=== PATIENT | female | born 1945 | race Caucasian/White ===

== ENCOUNTER 2021-02-13 09:23 | Emergency (ER) | payer MEDICARE ==
--- NOTE | 2021-02-13 10:00 | ERPHSYRPT ---
- History of Present Illness Time Seen by Provider: 02/13/21 09:35 Patient Subjective Stated Complaint: rib area pain, abd gurgling, frequent bowel movements Triage Nursing Assessment: pt to ED c/o L pain just under breast that comes and goes randomly. no aggrevating factors. alleviates with stretching and pressure. deneis CP. denies pain currently but sates this pain is recurring more often paula n before, has been dealing with this pain 2-3 years. "It started occuring few times a year and now it is more frequently, every other day." called PCP office today and was reffered to ED. Physician History: Patient is a 75-year-old female presents to our ED as a referral from her primary care doctor. Patient has been experiencing intermittent left lower chest pain for approximately 2 to 3 years. Patient states her symptoms are becoming more frequent. The pain is not associated with shortness of breath. Patient called her primary care doctor with these complaints. She was advised to come to our ED for an evaluation. Pain described as an ache. Pain is localized. No radiation. No specific worsening or improving factors. Symptoms are mild to moderate in intensity. Patient declined pain medication. Patient denies associated nausea or vomiting. No syncope. No diarrhea. No rash no fever. No Covid exposure. Patient states she is otherwise healthy. She states she exercises regularly. She voices no other complaints or concerns at this time. Allergies/Adverse Reactions: levofloxacin [From Levaquin] Allergy (Severe, Verified 02/13/21 09:38) Penicillins Allergy (Severe, Verified 02/13/21 09:38) nitrofurazone Allergy (Verified 02/13/21 09:38) Home Medications: Aspirin [Aspir-Low] 81 mg DAILY 09/12/16 [History] Calcium Carbonate/Vitamin D3 [Caltrate 600 + D Soft Chew Tab] 1 each PO DAILY 09/12/16 [History] Levothyroxine Sodium 88 Mcg [Synthroid 88 Mcg] 88 mcg PO DAILY 09/12/16 [History] Meloxicam 15 mg [Meloxicam 15 MG] 15 mg PO HS 09/12/16 [History] Multivitamin,Ther and Minerals [Vitamin and Minerals] 1 tab DAILY 09/12/16 [History] Omeprazole [Prilosec] 40 mg PO DAILY 09/12/16 [History] Pitavastatin Calcium [Livalo] 10 mg PO DAILY 09/12/16 [History] Zolpidem Tartrate [Ambien] 10 mg PO HS 09/12/16 [History] Hx Tetanus, Diphtheria Vaccination/Date Given: Yes Hx Influenza Vaccination/Date Given: Yes Hx Pneumococcal Vaccination/Date Given: Yes Immunizations Up to Date: Yes Travel Risk - International Travel Have you traveled outside of the country in past 3 weeks: No - Coronavirus Screening Are you exhibiting any of the following symptoms?: No Close contact with a COVID-19 positive Pt in past 14-21 Days: No - Vaccine Status Have you recieved a Covid-19 vaccination: Yes School Treasurer: Sverve - Vaccination Dates Date of 2cond Vaccination (if applicable): dec - Review of Systems Constitutional: No Symptoms, No Fever, No Chills Eyes: No Symptoms Ears, Nose, & Throat: No Symptoms Respiratory: No Symptoms, No Cough, No Dyspnea Cardiac: No Symptoms, No Chest Pain, No Edema, No Syncope Abdominal/Gastrointestinal: No Symptoms, No Abdominal Pain, No Nausea, No Vomiti ng, No Diarrhea Genitourinary Symptoms: No Symptoms, No Dysuria Musculoskeletal: No Symptoms, No Back Pain, No Neck Pain Skin: No Symptoms, No Rash Neurological: No Symptoms, No Dizziness, No Focal Weakness, No Sensory Changes Psychological: No Symptoms Endocrine: No Symptoms Hematologic/Lymphatic: No Symptoms Immunological/Allergic: No Symptoms All Other Systems: Reviewed and Negative - Past Medical History Pertinent Past Medical History: Yes Neurological History: No Pertinent History ENT History: Cataracts Cardiac History: No Pertinent History Respiratory History: No Pertinent History Endocrine Medical History: Hypothyroidism Musculoskeletal History: Osteoarthritis GI Medical History: Polyps, Gallbladder Disease History: Other Psycho-Social History: No Pertinent History Female Reproductive Disorders: No Pertinent History Other Medical History: R TKA - Past Surgical History Past Surgical History: Yes Neuro Surgical History: No Pertinent History Cardiac: Cardiac Catheterization Respiratory: No Pertinent History Gastrointestinal: Cholecystectomy Genitourinary: No Pertinent History Musculoskeletal: No Pertinent History, Orthopedic Surgery Female Surgical History: No Pertinent History Other Surgical History: bladder tie up. left great toe. lasix eye surgery. R knee - Social History Smoking Status: Never smoker Exposure to second hand smoke: No Drug Use: none Patient Lives Alone: No - Female History Hx Now: No - Nursing Vital Signs Nursing Vital Signs: Initial Vital Signs Temperature 98.0 F 02/13/21 09:31 Pulse Rate 84 02/13/21 09:31 Respiratory Rate 18 02/13/21 09:31 Blood Pressure 156/87 02/13/21 09:31 O2 Sat by Pulse Oximetry 97 02/13/21 09:31 Pain Scale Pain Intensity 0 - Physical Exam General Appearance: no apparent distress, alert Eye Exam: PERRL/EOMI, eyes nml inspection Ears, Nose, Throat Exam: normal ENT inspection, TMs normal, pharynx normal, moist mucous membranes Neck Exam: normal inspection, non-tender, supple, full range of motion Respiratory Exam: normal breath sounds, lungs clear, No respiratory distress Cardiovascular Exam: regular rate/rhythm, normal heart sounds, normal peripheral pulses Gastrointestinal/Abdomen Exam: soft, normal bowel sounds, No tenderness, No mass Back Exam: normal inspection, normal range of motion, No CVA tenderness, No vertebral tenderness Extremity Exam: normal inspection, normal range of motion, pelvis stable Neurologic Exam: alert, oriented x 3, cooperative, normal mood/affect, nml cerebellar function, sensation nml, No motor deficits Skin Exam: normal color, warm, dry, No rash Lymphatic Exam: No adenopathy SpO2 Interpretation: normal SpO2: 97 O2 Delivery: Room Air - Course Nursing assessment & vital signs reviewed: Yes EKG Interpreted by Me: RATE (84), Sinus Rhythm, NORMAL AXIS, NORMAL INTERVALS, Left Bundle Branch Block - CT Exams Chest CT Interpretation: Tele-radiologist Report (For PE. No acute cardiopulmonary abnormalities. Incidental granulomatous disease.) Ordered Tests: Active Orders 24 hr Category Date Time Status Chief Of Production STAT Care 02/13/21 09:58 Active EKG-ER Only STAT Care 02/13/21 09:57 Active IV Insertion STAT Care 02/13/21 09:57 Active Pulse Oximetry (ED) STAT Care 02/13/21 09:57 Active Heart-Healthy Diet Diet 02/13/21 Dinner Active ABDOMEN AND PELVIS W CONTRAST [CT] Stat Exams 02/13/21 10:57 Completed CHEST WITH CONTRAST [CT] Stat Exams 02/13/21 10:57 Completed CBC W DIFF Stat Lab 02/13/21 10:10 Completed CMP Stat Lab 02/13/21 10:10 Completed D-DIMER QUANTITATIVE Stat Lab 02/13/21 10:10 Completed LIPASE Stat Lab 02/13/21 10:10 Completed MAGNESIUM Stat Lab 02/13/21 10:10 Completed NT PRO BNP Stat Lab 02/13/21 10:10 Completed TROPONIN Q3H Lab 02/13/21 10:10 Completed TROPONIN Q3H Lab 02/13/21 13:10 Completed TROPONIN Q3H Lab 02/13/21 16:00 Ordered TROPONIN Q3H Lab 02/13/21 19:00 Ordered TROPONIN Q3H Lab 02/13/21 22:00 Ordered UA W/RFX UR CULTURE Stat Lab 02/13/21 11:42 Completed Medication Summary Discontinued Medications Generic Name Dose Route Start Last Admin Trade Name Freq PRN Reason Stop Dose Admin Aspirin 324 mg 02/13/21 13:41 02/13/21 13:48 Baby Aspirin 81 Mg Chew PO 02/13/21 13:42 324 mg STAT ONE Administration Aspirin Confirm 02/13/21 13:46 Baby Aspirin 81 Mg Chew Administered 02/13/21 13:47 Dose 324 mg .ROUTE .STK-MED ONE Nitroglycerin 1 gm 02/13/21 13:41 02/13/21 13:48 Nitro-Bid 2% Ud Packets TOP 02/13/21 13:42 1 gm STAT ONE Administration Nitroglycerin Confirm 02/13/21 13:46 Nitro-Bid 2% Ud Packets Administered 02/13/21 13:47 Dose 1 gm .ROUTE .STK-MED ONE Lab/Rad Data: Laboratory Result Diagrams 02/13/21 10:10 02/13/21 10:10 Laboratory Results 02/13/21 02/13/21 02/13/21 Range/Units 13:10 11:42 10:10 WBC (4.0-10.5) K/mm3 RBC (4.1-5.4) M/mm3 Hgb (12.0-16.0) gm/dl Hct (35-47) % MCV (78-100) fl MCH (26-32) pg MCHC (32-36) g/dl RDW (11.5-14.0) % Plt Count (150-450) K/mm3 MPV (7.5-11.0) fl Gran % (36.0-66.0) % Eos # (Auto) (0-0.5) Absolute Lymphs (auto) (1.0-4.6) Absolute Monos (auto) (0.0-1.3) Lymphocytes % (24.0-44.0) % Monocytes % (0.0-12.0) % Eosinophils % (0.00-5.0) % Basophils % (0.0-0.4) % Absolute Granulocytes (1.4-6.9) Basophils # (0-0.4) D-Dimer (215-500) ng/mL Sodium (137-145) mmol/L Potassium (3.5-5.1) mmol/L Chloride (98-107) mmol/L Carbon Dioxide (22-30) mmol/L Anion Gap (5-15) MEQ/L BUN (7-17) mg/dL Creatinine (0.52-1.04) mg/dL Estimated GFR ML/MIN Glucose (74-106) mg/dL Calcium (8.4-10.2) mg/dL Magnesium (1.6-2.3) mg/dL Total Bilirubin (0.2-1.3) mg/dL AST (14-36) U/L ALT (0-35) U/L Alkaline Phosphatase (38-126) U/L Troponin I < 0.012 < 0.012 (0.000-0.034) ng/mL NT-Pro-B Natriuret Pep (0-1800) pg/mL Serum Total Protein (6.3-8.2) g/dL Albumin (3.5-5.0) g/dL Lipase (23-300) U/L Urine Color STRAW (YELLOW) Urine Appearance CLEAR (CLEAR) Urine pH 7.0 (5-6) Ur Specific [place] 1.005 (1.005-1.025) Urine Protein NEGATIVE (Negative) Urine Ketones NEGATIVE (NEGATIVE) Urine Blood NEGATIVE (0-5) Baldemar/ul Urine Nitrite NEGATIVE (NEGATIVE) Urine Bilirubin NEGATIVE (NEGATIVE) Urine Urobilinogen NEGATIVE (0-1) mg/dL Ur Leukocyte Esterase NEGATIVE (NEGATIVE) Urine WBC (Auto) NONE (0-5) /HPF Urine RBC (Auto) NONE (0-2) /HPF U Epithel Cells (Auto) NONE (FEW) /HPF Urine Bacteria (Auto) NONE (NEGATIVE) /HPF Urine Culture Reflexed NO (NO) Urine Glucose NEGATIVE (NEGATIVE) mg/dL 04/13/21 04/13/21 04/13/21 Range/Units 10:10 10:10 10:10 WBC 6.7 (4.0-10.5) K/mm3 RBC 4.11 (4.1-5.4) M/mm3 Hgb 11.7 L (12.0-16.0) gm/dl Hct 37.3 (35-47) % MCV 90.8 (78-100) fl MCH 28.5 (26-32) pg MCHC 31.4 L (32-36) g/dl RDW 13.7 (11.5-14.0) % Plt Count 267 (150-450) K/mm3 MPV 9.1 (7.5-11.0) fl Gran % 60.9 (36.0-66.0) % Eos # (Auto) 0.29 (0-0.5) Absolute Lymphs (auto) 1.64 (1.0-4.6) Absolute Monos (auto) 0.65 (0.0-1.3) Lymphocytes % 24.5 (24.0-44.0) % Monocytes % 9.7 (0.0-12.0) % Eosinophils % 4.3 (0.00-5.0) % Basophils % 0.6 (0.0-0.4) % Absolute Granulocytes 4.07 (1.4-6.9) Basophils # 0.04 (0-0.4) D-Dimer 865 H* (215-500) ng/mL Sodium 139 (137-145) mmol/L Potassium 4.3 (3.5-5.1) mmol/L Chloride 104 (98-107) mmol/L Carbon Dioxide 28 (22-30) mmol/L Anion Gap 11.3 (5-15) MEQ/L BUN 16 (7-17) mg/dL Creatinine 0.77 (0.52-1.04) mg/dL Estimated GFR > 60.0 ML/MIN Glucose 98 (74-106) mg/dL Calcium 9.5 (8.4-10.2) mg/dL Magnesium 2.0 (1.6-2.3) mg/dL Total Bilirubin 0.30 (0.2-1.3) mg/dL AST 27 (14-36) U/L ALT 24 (0-35) U/L Alkaline Phosphatase 68 (38-126) U/L Troponin I (0.000-0.034) ng/mL NT-Pro-B Natriuret Pep 113 (0-1800) pg/mL Serum Total Protein 7.0 (6.3-8.2) g/dL Albumin 4.0 (3.5-5.0) g/dL Lipase 142 (23-300) U/L Urine Color (YELLOW) Urine Appearance (CLEAR) Urine pH (5-6) Ur Specific [place] (1.005-1.025) Urine Protein (Negative) Urine Ketones (NEGATIVE) Urine Blood (0-5) Baldemar/ul Urine Nitrite (NEGATIVE) Urine Bilirubin (NEGATIVE) Urine Urobilinogen (0-1) mg/dL Ur Leukocyte Esterase (NEGATIVE) Urine WBC (Auto) (0-5) /HPF Urine RBC (Auto) (0-2) /HPF U Epithel Cells (Auto) (FEW) /HPF Urine Bacteria (Auto) (NEGATIVE) /HPF Urine Culture Reflexed (NO) Urine Glucose (NEGATIVE) mg/dL - Progress Progress: improved Progress Note: EKG reveals a left bundle branch block. We obtained EKG from 2018. A left bundle branch block was not observed. This left bundle branch block appears to be new. 02/13/21 10:50 02/13/21 14:04 D-dimer positive. CTA chest negative for PE. Incidental lung nodule observed . CT abdomen pelvis negative for acute intra-abdominal pathology. Excessive stool burden observed. Patient also has an incidental kidney cyst. In light of patient's symptoms shortness of breath and new left bundle branch block we will admit for work-up. Patient states her veterinary microbiologist is Dr. Castro therefore patient would like to be transferred to [facility]. Case discussed with Dr. Hardy ER physician at [facility] who accepts transfer. Plan of care discussed with patient. She agrees to transfer to [facility] for further evaluation and treatment. 02/13/21 14:05 Counseled pt/family regarding: lab results, diagnosis, rad results - Departure Departure Disposition: Transfer Clinical Impression: Left bundle branch block (LBBB), Lung granuloma, Lung nodule, Renal cyst, left, Arthritis, lumbar spine, Constipation, ACS (acute coronary syndrome) Condition: Stable Critical Care Time: No Referrals: MYNOR BLOUNT NP [Primary Care Provider] -
[2021-02-13 10:13] LABS: Absolute Neutrophil Ct (ANC) 4.07 (1.4-6.9); BASOPHIL % 0.6 % (0.0-0.4); Basophil (Absolute #) 0.04 (0-0.4); Eosinophil % 4.3 % (0.00-5.0); Eosinophil (Absolute #) 0.29 (0-0.5); Hematocrit 37.3 % (35-47); Hemoglobin 11.7 gm/dl (12.0-16.0); Lymphocyte (Absolute #) 1.64 (1.0-4.6); Lymphocytes % 24.5 % (24.0-44.0); Mean Cell Volume 90.8 fl (78-100); Mean Corpuscular Hemoglobin 28.5 pg (26-32); Mean Corpuscular Hgb Concent. 31.4 g/dl (32-36); Mean Platelet Volume 9.1 fl (7.5-11.0); Monocyte (Absolute #) 0.65 (0.0-1.3); Monocytes % 9.7 % (0.0-12.0); Neutrophil % 60.9 % (36.0-66.0); Platelet Count 267 K/mm3 (150-450); Red Blood Count 4.11 M/mm3 (4.1-5.4); Red Cell Distribution Width 13.7 % (11.5-14.0); White Blood Count 6.7 K/mm3 (4.0-10.5)
[2021-02-13 10:34] LABS: ALKALINE PHOSPHATASE 68 U/L (38-126); ANION GAP 11.3 MEQ/L (5-15); BLOOD UREA NITROGEN 16 mg/dL (7-17); CHLORIDE 104 mmol/L (98-107); Calcium 9.5 mg/dL (8.4-10.2); Carbon Dioxide 28 mmol/L (22-30); Creatinine 1 0.77 mg/dL (0.52-1.04); EST GLOMERULAR FILTRATION RATE > 60.0 ML/MIN; Glucose 98 mg/dL (74-106); LIPASE 142 U/L (23-300); NT PRO BNP 113 pg/mL (0-1800); Potassium 4.3 mmol/L (3.5-5.1); SGOT/AST 27 U/L (14-36); SGPT/ALT 24 U/L (0-35); SODIUM 139 mmol/L (137-145)
[2021-02-13 12:04] LABS: Appearance CLEAR (CLEAR); Bilirubin NEGATIVE (NEGATIVE); Blood NEGATIVE Ery/ul (0-5); Glucose NEGATIVE (NEGATIVE); Ketones NEGATIVE (NEGATIVE); Leukocyte Esterase NEGATIVE (NEGATIVE); Nitrite NEGATIVE (NEGATIVE); Protein,Urine Dip NEGATIVE (Negative); Specific Gravity 1.005 (1.005-1.025); Urobilinogen NEGATIVE mg/dL (0-1)
--- NOTE | 2021-02-13 13:06 | XRAY ---
Indication: Left chest pain, low energy, and diarrhea. Elevated d-dimer. Multiple contiguous axial images obtained through the chest using 80 cc Isovue 370 contrast and PE protocol.. Comparison: None There is good opacification of the pulmonary arteries to include the lobar and segmental branches. No pulmonary embolus. Heart is not enlarged. Small subcarinal and right perihilar calcified nodes. No pathologic mediastinal/hilar lymphadenopathy. Lungs demonstrate mild dependent atelectasis, small right lower lobe calcified granuloma, and minimal lingula fibrosis/scarring. Right lower lobe demonstrates 4 mm noncalcified nodule (image 48) probably granulomatous. No suspicious pulmonary mass, infiltrate, or effusion. Bony thorax intact with mild degenerative changes throughout the spine. CT abdomen/pelvis reported separately. Impression: 1. Negative pulmonary embolus. No acute cardiopulmonary abnormalities. 2. Incidental granulomatous disease.
--- NOTE | 2021-02-13 13:28 | XRAY ---
Indication: Left chest pain. Low-energy. Diarrhea. Multiple contiguous axial images obtained through the abdomen and pelvis using 80 cc Isovue 370 contrast. Comparison: CT abdomen August 22, 2006. CT chest reported separately. Noncontrasted stomach and bowel loops nonobstructed. Normal appendix. There is again moderate diffuse scattered colonic fecal debris throughout. Interval cholecystectomy. No free fluid/air. Again tiny splenic calcified granulomas and 1 cm left lower renal cyst. Pelvis demonstrates a pessary ring. Remaining liver, pancreas, spleen, adrenal glands, kidneys, ureters, bladder, and uterus are unremarkable. Mild scattered aortoiliac calcifications. No AAA or pathologic retroperitoneal lymphadenopathy. Osseous structures intact with now moderate degenerative changes throughout the lumbar spine. Impression: 1. Again diffuse fecal stasis and left renal cyst. 2. Remaining CT abdomen/pelvis with contrast exam is negative.
[2021-02-13] MEDS ORDERED: NITRO-BID 2% UD PACKETS TOP ONE (13:41)
[2021-02-13] MEDS ORDERED: BABY ASPIRIN 81 MG CHEW PO ONE (13:41)
[2021-02-13] MEDS ORDERED: NITRO-BID 2% UD PACKETS ONE (13:46)
[2021-02-13] MEDS ORDERED: BABY ASPIRIN 81 MG CHEW ONE (13:46)
[2021-02-13 13:53] VITALS: BP 161/71
[2021-02-13 14:02] VITALS: PULSE 91
[2021-02-13 14:06] VITALS: O2SAT 97
== END 2021-02-13 15:00 | disposition short-term general hospital (02) ==
LOC: ED 09:23
DX: I44.2 Atrioventricular block, complete (principal); J84.10 Pulmonary fibrosis, unspecified; R91.1 Solitary pulmonary nodule; N28.1 Cyst of kidney, acquired; M47.9 Spondylosis, unspecified; I24.9 Acute ischemic heart disease, unspecified; Z79.899 Other long term (current) drug therapy; E03.9 Hypothyroidism, unspecified
CPT/HCPCS: 36000; 36415; 71260; 74177; 80053; 81001; 83690; 83735; 83880; 84484; 85025; 85379; 93005; 93041; 94760; 99285; A9270-GY

== ENCOUNTER 2021-05-25 07:55 | Day surgery (SDC) | payer MEDICARE ==
[~2021-05-25 07:55] MED LIST: BUPIVACAINE 0.5% VIAL IJ ONE; Lactated Ringers 1,000 ML IV ONE; XYLOCAINE 1% HCL 20 ML MDV ONE
[2021-05-25] MEDS ORDERED: CLINDAMYCIN-D5W 900 MG/50 ML*** 900 MG/50 ML BAG IV STA (08:14)
[2021-05-25] MEDS ORDERED: Lactated Ringers 1,000 ML IV SCH (08:30)
[2021-05-25] MEDS ORDERED: DIPRIVAN 200 MG/20 ML IV ONE (11:13)
[2021-05-25] MEDS ORDERED: Zemuron 100 MG/10 ML ONE ×2 (11:14→13:41)
[2021-05-25] MEDS ORDERED: SUBLIMAZE 100 MCG/2 ML ONE (11:14)
[2021-05-25] MEDS ORDERED: Decadron 4 MG INJ ONE ×2 (11:15→14:02)
[2021-05-25] MEDS ORDERED: Zofran 4 MG/2 ML VIAL ONE (11:15)
[2021-05-25] MEDS ORDERED: Xylocaine-Mpf 2% 5 Ml Vial ONE (11:38)
[2021-05-25] MEDS ORDERED: BRIDION 200MG/2ML IV ONE (11:45)
[2021-05-25] MEDS ORDERED: Naropin 0.5% 30 ML VIAL ONE (14:02)
--- NOTE | 2021-05-25 14:12 | XRAY ---
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 Intraoperative fluoroscopy provided for 48 seconds. 2 lateral digital spot images of the labeled right calcaneus demonstrates posterior postsurgical soft tissue changes. Correlate with intraoperative findings/report.
--- NOTE | 2021-05-25 14:44 | XRAY ---
48 seconds fluoroscopy time in surgery for reattachment of the achilles tendon.
[2021-05-25 15:36] VITALS: BP 141/59; PULSE 88; O2SAT 98
--- NOTE | 2021-05-25 15:57 | OP ---
SURGERY DATE/TIME: 05/25/2021 1150 PREOPERATIVE DIAGNOSES: 1) Pain right heel. 2) Zandra's deformity. 3) Achilles tendinosis. 4) Enthesosphyte of Achilles tendon, right ankle. POSTOPERATIVE DIAGNOSES: 1) Pain right heel. 2) Zandra's deformity. 3) Achilles tendinosis. 4) Enthesosphyte of Achilles tendon, right ankle. PROCEDURES: 1) Achilles tendon detachment. 2) Zandra's resection. 3) Achilles tendon debridement. 4) Achilles tendon advancement. SURGEON: Maury Win DPM. WOOD PANEL INSPECTOR: None. ANESTHESIA: General with a preoperative block consisting of 30 cc of 1:1 mixture of 1% lidocaine plain and 0.5% bupivacaine plain injected in Monse block-type fashion to the right posterior ankle and postoperative block. Popliteal block of the right ankle. See anesthesia notes for details. HEMOSTASIS: Thigh tourniquet set to 300 mm of Mercury for 78 minutes total tourniquet time. ESTIMATED BLOOD LOSS: Less than 30 cc. MATERIALS: Adan 4.5 ComposiTCP with nonsliding BroadBand tape x2 and 4.75 Ventix Link knotless anchor x2, 2-0 Vicryl, 4-0 Monocryl and 3-0 Nylon. INJECTABLES: See anesthesia report for details. Preoperative block of 30 cc of a 1:1 mixture of 1% lidocaine plain and 0.5% bupivacaine plain in a Duson block-type to the posterior right ankle. INDICATION FOR SURGERY: Gina is a very pleasant 75 year-old female who presented to my office approximately eight months ago for recurrent pain to the Achilles tendon with extended periods of activity. She indicated that the pain was at the posterior aspect of the Achilles insertion on her heel bone with weight bearing. She has tried multiple courses of antibiotics, physical therapy, immobilization and other modalities of conservative care at this time with no permanent success and at this time wishes to proceed with surgical intervention. She does understand all risks, benefits and complications of surgical intervention at this time including but not limited to possibility of deep vein thrombosis due to proximity to the Achilles tendon and non-weightbearing nature of surgical intervention, possible postoperative wound dehiscence, delayed wound healing, nonwound healing, delayed tendon healing and nontendon healing and possible need for further surgical intervention in the future. She understands all of this and wishes to proceed with surgical intervention at this time. DESCRIPTION OF PROCEDURE AND FINDINGS: Gina was brought to the OR and placed on the OR table. Anesthesia was administered on the cart of the general form prior to transferring to a prone position on the operative table. A well-padded thigh tourniquet was placed following sedation and the patient was then transferred. The tourniquet was set to 300 mm of Mercury and the right lower extremity was prepped and draped in the typical sterile fashion at this time. Attention was directed to the posterior aspect of the right heel and a Dyess was used under fluoroscopic guidance to find the most prominent area of the enthesosphyte. At this time this was marked out with a skin marker just distal to this site. Esmarch was utilized to exsanguinate the leg and the tourniquet was turned on to 300 mm of Mercury. Attention was directed with a 15 blade with an L-type incision approximately 8 cm proximal on the medial aspect of the Achilles tendon and 6 cm horizontal at the plantar third of the calcaneal body. Incision was carried down full thickness and a flap was elevated until the paratenon of the tendon was exposed this was held in retraction out of the way utilizing a 3-0 Nylon in back for the remainder of the procedure. At this time paratenon was incised approximately 4 cm on its insertion at the midline of the Achilles tendon and an inverted T-type incision was performed detaching the Achilles tendon from its central aspect however leaving it attached at its medial and lateral aspect. On inspection of the tendons at this time, there were significant amount of calcification and thickening of the tendon with fibrotic and devitalized thrombosed capillaries within the tendon itself. The sagittal saw was utilized to resect the calcaneal anesthesia plate as well as the Zandra's deformity at the posterior aspect of the calcaneus. This was then smoothed down utilizing a combination of rongeurs and a power rasp until the surface of the bone was smooth and no prominent features were felt or seen on fluoroscopy. At this time copious amounts of sterile saline were utilized to flush the surgical site. A new 15 blade was then utilized to debride the tendon of any nodule within the tendon and debulking the tendon in general of its overgrown nature and the tendinosis. After this the tendon was deemed to be healthy and adequate for final repair. A 4.5 ComposiTCP [place] with non-sliding BroadBand Tape was inserted as manufacturers specifications into the proximal aspect of the calcaneus insuring not to be convergent as well as being deeply rooted within the calcaneal body angling slightly anterior towards the body of the calcaneus with both limbs. At this time a Dyess needle was utilized to bring the Broad tape through a very significant portion of the Achilles tendon, this was pulled down with significant force in order to assess its reattachment would facilitated without significant tension which was achievable. At this time the threads were pulled through the tendon and attention was directed to the distal aspect of the calcaneal body where a 4.75 Ventix Link knotless anchor was placed x2 at the medial and lateral aspects of the calcaneal body distally. The proximal limbs of the suture were divided into a mediolateral portion each side and a crisscross type fashion securing design was implemented while implementing the 4.75 anchors into the calcaneus under adequate tension. At this time the contralateral leg was tested for resting tension using Matles sign and deemed to be identical to the opposite extremity. At this time copious amounts of sterile saline were utilized to flush the surgical site. A 2-0 Vicryl was utilized to repair the deficit in the Achilles tendon where the debridement took place. The paratenon was then repaired of the Achilles tendon using 4-0 Monocryl, slap stitch was then resected and the corner of the L-type incision was reapproximated first insuring that the edges lined up perfectly. Subcutaneous stitches utilizing interrupted suture of 4-0 Monocryl was performed and Allgower-Donati stitch was performed at the corner of the incision using 3-0 Nylon in order to prevent soft tissue necrosis of the tip of the flap. The remainder of the suture that was placed was placed in simple interrupted-type fashion to the proximal and the distal horizontal limbs of the incision site. At this time the tourniquet was let down and total tourniquet time was 78 minutes. The incision site was cleansed with a sterile towel and dried. Betadine was applied to the incision sites. Adaptic, 4x4, Kerlix and ABD were applied to the right lower extremity with minimal tension. At this time at well-padded plaster posterior splint was applied utilizing two layers of Webril, posterior splint and two additional layers of Webril and two 4 inch and 6 inch KATIA applied with minimal tension. The foot was placed at adequate resting tension in order for the tendon to heal over the course of next following weeks. The patient underwent a popliteal block following the procedure in the operative room. Following this the patient was returned to the postoperative anesthesia care unit with vital signs stable and vascular status intact. She handled the anesthesia as well as procedure without complication. See postoperative notes for postoperative order details.
== END 2021-05-25 16:00 | disposition home or self-care (01) ==
LOC: SDC 07:55
PROVIDERS: ATTEND Podiatrist Foot & Ankle Surgery
DX: M92.61 Juvenile osteochondrosis of tarsus, right ankle (principal); M79.671 Pain in right foot; M89.8X7 Other specified disorders of bone, ankle and foot; M77.9 Enthesopathy, unspecified
CPT/HCPCS: 73620; 76000; J1100; J2405; J2704; J2795; J3010

== ENCOUNTER 2021-12-24 07:53 | Day surgery (SDC) | payer MEDICARE ==
--- NOTE | 2021-12-24 07:45 | HP ---
DATE OF SURGERY: 12/24/2021 HISTORY OF PRESENT ILLNESS: The patient is a 76-year-old in need of a follow up screening colonoscopy. The last colonoscopy five years or so ago and had some small polyps at that time. PAST MEDICAL HISTORY: Hypothyroidism, arthritis. PAST SURGICAL HISTORY: Ankle surgery. Right knee replacement. Cholecystectomy. Colonoscopy in the past. MEDICATIONS: Livalo, Meloxicam, levothyroxine, vitamins with vitamin D3, Ocuvite, Xanax, omeprazole. ALLERGIES: LEVAQUIN. PENICILLIN. NITROFURAZONE. CLINDAMYCIN. ATORVASTATIN. PRAVASTATIN. ROSUVASTATIN. FAMILY HISTORY: Negative in regards to this problem. SOCIAL HISTORY: No smoking or alcohol abuse. REVIEW OF SYSTEMS: Fourteen systems reviewed per admission assessment. No chest pain or palpitations. Other systems negative or noncontributory as above and per preadmission questionnaire. PHYSICAL EXAMINATION: GENERAL: No acute distress. HEENT: Sclerae nonicteric. NECK: No JVD. CHEST: Breath sounds symmetrical. CVS: Regular rate and rhythm. ABDOMEN: Soft, nondistended. EXTREMITIES: No significant edema. NEURO: Alert, oriented, moving extremities symmetrically. RECTAL: Deferred timed to endoscopy exam. PSYCH: Appropriate mood and affect. IMPRESSION: History of small polyp. She is in need of follow up colonoscopy. The last colonoscopy was five or six years ago. I feel she is a candidate. Risks and benefits explained in detail including but not limited to bleeding or infection, risk of bowel injury or perforation, risk of missed or nondiagnosis or incomplete exam, general risk of anesthesia or sedation, risk of bowel prep but not limited to, consent obtained. Will proceed with outpatient follow up screening colonoscopy.
[2021-12-24] MEDS ORDERED: Lactated Ringers 1,000 ML IV ONE (08:07)
[2021-12-24] MEDS ORDERED: Lactated Ringers 1,000 ML IV SCH (08:30)
[2021-12-24] MEDS ORDERED: DIPRIVAN 200 MG/20 ML IV ONE ×2 (10:18→11:09)
[2021-12-24 11:57] VITALS: BP 153/88; PULSE 87; O2SAT 97
--- NOTE | 2021-12-24 13:47 | OP ---
SURGERY DATE/TIME: 12/24/2021 1032 PREOPERATIVE DIAGNOSIS: History of polyps in the past, need follow up screening colonoscopy. POSTOPERATIVE DIAGNOSES: 1) Very tortuous colon. 2) Fair bowel prep. 3) Small early rectal polyp versus hyperplastic lesion. PROCEDURES: 1) Colonoscopy to cecum with cold biopsy of very vague raised descending colon. 2) Hot biopsy polypectomy small early polyp versus hyperplastic lesion rectum x1. 3) Withdrawal time around 11 minutes. SURGEON: Dr. Gabriel Luna. ANESTHESIA: MAC. ESTIMATED BLOOD LOSS: Minimal. INDICATIONS: As noted above. Risks and benefits explained in detail but not limited to and consent obtained. DESCRIPTION OF PROCEDURE AND FINDINGS: The patient is taken to the endoscopy room. MAC anesthesia induced. After official time out and no disagreement with planned procedure, digital rectal exam did not reveal any rectal masses. Video colonoscope inserted and passed up through the very tortuous sigmoid, descending, transverse and ascending colon, required positioning on her back and two different staff members pushing on her abdomen. Finally the scope was able to be pushed around to the cecum. Appendiceal orifice and valve photo documented. Prep overall was fair. A little bit of liquidy stool throughout the colon suctioned irrigated as clear as possible. The scope is slowly and carefully withdrawn over the next 11 minutes. No signs of any large polyps, masses or obstructing lesions. There was one vague raised area in the descending colon removed with cold biopsy forceps that maybe consistent with hyperplasia mucosa. Good hemostasis noted. Otherwise the scope was carefully withdrawn. Back in the rectum, small early polyp versus hyperplastic lesion removed with hot biopsy forceps with brief bursts of cautery. Good hemostasis noted. The patient tolerated the procedure well. There were no immediate complications. Findings discussed with her out in the waiting area.
== END 2021-12-24 12:00 | disposition home or self-care (01) ==
LOC: SDC 07:53
PROVIDERS: ATTEND Surgery
DX: Z09 Encounter for follow-up examination after completed treatment for conditions other than malignant neoplasm (principal); K62.1 Rectal polyp; K63.5 Polyp of colon; Z86.010 Personal history of colon polyps
CPT/HCPCS: 88305; 99100; J2704

== ENCOUNTER 2024-07-11 09:37 | Emergency (ER) | payer MEDICARE ==
[2024-07-11 10:08] VITALS: PULSE 39; TEMP 97.4; O2SAT 98
--- NOTE | 2024-07-11 10:16 | ERPHSYRPT ---
- History of Present Illness Time Seen by Provider: 07/11/24 09:37 Patient Subjective Stated Complaint: pt began feeling weak this morning Triage Nursing Assessment: Pt was brought to the ER by her , bradycardic, hypotensive, denies pain, felt fine when she woke up this mroning at 0630 but approx 0800 she got extremely weak, pulses weak, skin n/w/d, denies N&V, abnormal EKG Physician History: Pt states about 2 hours ago she became generally weak and lightheaded; denies chest pain, abdominal pain, fever. Allergies/Adverse Reactions: levofloxacin [From Levaquin] Allergy (Severe, Verified 07/11/24 10:08) Rash Penicillins Allergy (Severe, Verified 07/11/24 10:08) Rash clindamycin Allergy (Intermediate, Verified 07/11/24 10:08) Rash atorvastatin [From Lipitor] Allergy (Verified 07/11/24 10:08) Muscle Aches nitrofurazone Allergy (Verified 07/11/24 10:08) Hives pravastatin Allergy (Verified 07/11/24 10:08) Muscle Aches rosuvastatin [From Crestor] Allergy (Verified 07/11/24 10:08) Muscle Aches Home Medications: Aspirin [Aspir-Low] 81 mg PO DAILY 09/12/16 [History] Calcium Carbonate/Vitamin D3 [Caltrate 600 + D Soft Chew Tab] 1 each PO DAILY 09/12/16 [History] Levothyroxine Sodium 88 Mcg [Synthroid 88 Mcg] 88 mcg PO DAILY 09/12/16 [History] Multivitamin,Ther and Minerals [Vitamin and Minerals] 1 tab PO DAILY 09/12/16 [History] ALPRAZolam 1 MG [Xanax 1 mg] 1 mg PO HS PRN PRN 05/15/21 [History] Beta-Carotene(A) W-C & E/Min [Ocuvite Tablet] 1 tab PO DAILY 05/15/21 [History] Cranberry 500 mg PO DAILY 05/15/21 [History] Omeprazole 40 mg PO DAILY 12/24/21 [History] Ezetimibe 10 mg PO DAILY 07/11/24 [History] Metoprolol Succinate 25 mg Xl* [Toprol-Xl 25MG Tablets] 25 mg PO DAILY 07/11/24 [History] Ropinirole HCl 0.5 mg [Requip 0.5 MG] 0.5 mg PO BID 07/11/24 [History] Rosuvastatin Calcium 5 mg PO DAILY 07/11/24 [History] Hx Tetanus, Diphtheria Vaccination/Date Given: Yes Hx Influenza Vaccination/Date Given: Yes Hx Pneumococcal Vaccination/Date Given: Yes Travel Risk - International Travel Have you traveled outside of the country in past 3 weeks: No - Emerging Infectious Disease Are you exhibiting symptoms associated with any current EIDs: No - Review of Systems Constitutional: No Fever Cardiac: No Chest Pain Abdominal/Gastrointestinal: No Abdominal Pain Neurological: Other (lightheadedness; generalized weakness.) - Past Medical History Pertinent Past Medical History: Yes Neurological History: No Pertinent History, Peripheral Neuropathy ENT History: No Pertinent History Cardiac History: High Cholesterol Respiratory History: No Pertinent History Endocrine Medical History: No Pertinent History Musculoskeletal History: Arthritis GI Medical History: Polyps, Gallbladder Disease History: Other Psycho-Social History: No Pertinent History Female Reproductive Disorders: No Pertinent History Other Medical History: R TKA - Past Surgical History Past Surgical History: Yes Neuro Surgical History: No Pertinent History Cardiac: Cardiac Catheterization Respiratory: No Pertinent History Gastrointestinal: Cholecystectomy Genitourinary: No Pertinent History Musculoskeletal: Orthopedic Surgery Female Surgical History: No Pertinent History Other Surgical History: bladder tie up. left great toe. lasix eye surgery. R knee - Social History Smoking Status: Former smoker Exposure to second hand smoke: No Drug Use: none Patient Lives Alone: No - Social Determinants of Health Will the patient participate in the screening: Yes Do you worry about a steady place to live?: No Do you have any problems with any of the following?: No known problems In the past 12 months,have you had to go without utilities?: No Transportation Issues: No Has anyone in your support network made you feel unsafe?: No Have you or anyone in your house had to go without enough: No - Nursing Vital Signs Nursing Vital Signs: Initial Vital Signs Temperature 97.4 F 07/11/24 09:44 Pulse Rate 39 L 07/11/24 09:44 Blood Pressure 105/62 07/11/24 09:44 O2 Sat by Pulse Oximetry 98 07/11/24 09:44 Pain Scale Pain Intensity 0 - Physical Exam General Appearance: alert Eye Exam: eyes nml inspection Ears, Nose, Throat Exam: pharynx normal Neck Exam: normal inspection Respiratory Exam: lungs clear, airway intact Cardiovascular Exam: bradycardia Gastrointestinal/Abdomen Exam: normal bowel sounds Back Exam: normal inspection Extremity Exam: No pedal edema Neurologic Exam: alert, cooperative Skin Exam: No cyanosis SpO2 Interpretation: normal SpO2: 98 O2 Delivery: Room Air - Course Nursing assessment & vital signs reviewed: Yes EKG Interpreted by Me: RATE (39), NORMAL AXIS, Other (3rd degree heart block; 0954) - Radiology Exams Chest X-ray Interpretation: Interpreted by me, No Pneumonia Ordered Tests: Active Orders 24 hr Category Date Time Status EKG-ER Only STAT Care 07/11/24 10:13 Active IV Insertion STAT Care 07/11/24 10:13 Active CHEST 1 VIEW (PORTABLE) Stat Exams 07/11/24 10:13 Taken CBC W DIFF Stat Lab 07/11/24 10:33 Completed CMP Stat Lab 07/11/24 10:33 Completed MAGNESIUM Stat Lab 07/11/24 10:33 Completed TROPONIN Q4H Lab 07/11/24 10:33 Completed TROPONIN Q4H Lab 07/11/24 14:15 Ordered TROPONIN Q4H Lab 07/11/24 18:15 Ordered Medication Summary Discontinued Medications Generic Name Dose Route Start Last Admin Trade Name Freq PRN Reason Stop Dose Admin Sodium Chloride 1,000 mls @ 999 mls/hr 07/11/24 10:13 07/11/24 10:27 Sodium Chloride 0.9% 1000 Ml IV 07/11/24 11:13 999 mls/hr .Q1H1M STA Administration Sodium Chloride Confirm 07/11/24 10:22 Sodium Chloride 0.9% 1000 Ml Administered 07/11/24 10:23 Dose 1,000 mls @ ud .ROUTE .STK-MED ONE Lab/Rad Data: Laboratory Result Diagrams 07/11/24 10:33 07/11/24 10:33 Laboratory Results 07/11/24 07/11/24 07/11/24 Range/Units 10:33 10:33 10:33 WBC 6.2 (3.98-10.04) x10^3/uL RBC 3.93 (3.93-5.22) x10^6/uL Hgb 10.5 L (11.2-15.7) g/dL Hct 34.4 (34.1-44.9) % MCV 87.5 (79.4-94.8) fL MCH 26.7 (25.6-32.2) pg MCHC 30.5 L (32.2-35.5) g/dL RDW 13.2 (11.7-14.4) % Plt Count 242 (182-369) x10^3/uL MPV 9.3 L (9.4-12.3) fL Gran % 66.9 (34.0-71.1) % Immature Gran % (Auto) 0.5 H (0.001-0.429) % Nucleat RBC Rel Count 0.0 (0.00-0.2) % Eos # (Auto) 0.27 (0.04-0.36) x10^3/uL Immature Gran # (Auto) 0.03 (0.001-0.031) x10^3u/L Absolute Lymphs (auto) 1.18 (1.18-3.74) x10^3/uL Absolute Monos (auto) 0.52 (0.24-0.86) x10^3/uL Absolute Nucleated RBC 0.00 (0.00-0.012) x10^3u/L Lymphocytes % 19.2 L (19.3-51.7) % Monocytes % 8.5 (4.7-12.5) % Eosinophils % 4.4 (0.7-5.8) % Basophils % 0.5 (0.1-1.2) % Absolute Granulocytes 4.12 (1.56-6.13) x10^3/uL Basophils # 0.03 (0.01-0.08) x10^3/uL Sodium 139 (135-145) mmol/L Potassium 4.0 (3.5-5.1) mmol/L Chloride 104 (98-107) mmol/L Carbon Dioxide 25 (22-30) mmol/L Anion Gap 13.8 (5-15) MEQ/L BUN 22 H (7-17) mg/dL Creatinine 0.98 (0.52-1.04) mg/dL Estimated GFR 58.4 ML/MIN Glucose 169 H (74-106) mg/dL Calcium 9.4 (8.4-10.2) mg/dL Magnesium 1.9 (1.6-2.3) mg/dL Total Bilirubin 0.30 (0.2-1.3) mg/dL AST 30 (14-36) U/L ALT 29 (0-35) U/L Alkaline Phosphatase 75 (38-126) U/L Troponin I < 0.012 (0.000-0.033) ng/mL Serum Total Protein 6.5 (6.3-8.2) g/dL Albumin 3.6 (3.5-5.0) g/dL - Progress Progress: improved Progress Note: 07/11/24 10:26 Repeat EKG @ 1019: rate=99, SSq=432, sinus rhythm, LBBB. 07/11/24 10:46 Pt states she has [facility] and wishes to use them for transfer. 07/11/24 11:15 Pacer pads applied by nursing staff shortly after 3rd degree heart block was discovered. Will see patient in: other (Spoke with Dr. Mustafa([id number]) who accepted pt for transfer to [facility] as a direct admission.) Counseled pt/family regarding: diagnosis Medical Desision Making - Diagnostic Testing Diagnostic test were ordered, analyzed, and reviewed by me: Yes Radiological Interpretation: Interpreted by me - Departure Departure Disposition: Transfer ([facility]) Clinical Impression: Generalized weakness, Lightheadedness, Third degree heart block Condition: Stable Critical Care Time: Yes Critical Care Time(excluding separately billable procedures): Critical 30-74 mins Referrals: MYNOR BLOUNT [employer]ING [employer] [Primary Care Provider] - Follow up/PCP as directed
[2024-07-11] MEDS ORDERED: Sodium Chloride 0.9% 1000 ML 1,000 ML ONE (10:22)
[2024-07-11] MEDS: Sodium Chloride 0.9% 1000 ML 1,000 ML IV STA (10:27)
[2024-07-11 10:35] LABS: Absolute Neutrophil Ct (ANC) 4.12 x10^3/uL (1.56-6.13); BASOPHIL % 0.5 % (0.1-1.2); Basophil (Absolute #) 0.03 x10^3/uL (0.01-0.08); Eosinophil % 4.4 % (0.7-5.8); Eosinophil (Absolute #) 0.27 x10^3/uL (0.04-0.36); Hematocrit 34.4 % (34.1-44.9); Hemoglobin 10.5 g/dL (11.2-15.7); IMMATURE GRAN # 0.03 x10^3u/L (0.001-0.031); IMMATURE GRAN % 0.5 % (0.001-0.429); Lymphocyte (Absolute #) 1.18 x10^3/uL (1.18-3.74); Lymphocytes % 19.2 % (19.3-51.7); Mean Cell Volume 87.5 fL (79.4-94.8); Mean Corpuscular Hemoglobin 26.7 pg (25.6-32.2); Mean Corpuscular Hgb Concent. 30.5 g/dL (32.2-35.5); Mean Platelet Volume 9.3 fL (9.4-12.3); Monocyte (Absolute #) 0.52 x10^3/uL (0.24-0.86); Monocytes % 8.5 % (4.7-12.5); Neutrophil % 66.9 % (34.0-71.1); Platelet Count 242 x10^3/uL (182-369); Red Blood Count 3.93 x10^6/uL (3.93-5.22); Red Cell Distribution Width 13.2 % (11.7-14.4); White Blood Count 6.2 x10^3/uL (3.98-10.04)
[2024-07-11 10:49] LABS: ALBUMIN 3.6 g/dL (3.5-5.0); ANION GAP 13.8 MEQ/L (5-15); BILIRUBIN,TOTAL 0.3 mg/dL (0.2-1.3); Calcium 9.4 mg/dL (8.4-10.2); Creatinine 1 0.98 mg/dL (0.52-1.04); EST GLOMERULAR FILTRATION RATE 58.4 ML/MIN; MAGNESIUM 1.9 mg/dL (1.6-2.3); Total Protein 6.5 g/dL (6.3-8.2)
[2024-07-11 11:45] VITALS: BP 138/62
--- NOTE | 2024-07-11 18:49 | XRAY ---
Indication: Weakness. Comparison: October 23, 2023 Portable chest less inflated and remains clear. Heart and mediastinal structures within normal limits. Bony thorax intact again with osteopenia and degenerative changes. Impression: Continued nonacute chest.
== END 2024-07-11 11:35 | disposition short-term general hospital (02) ==
LOC: ED 09:37
DX: I44.2 Atrioventricular block, complete (principal); R53.1 Weakness; R42 Dizziness and giddiness; E78.5 Hyperlipidemia, unspecified; Z79.899 Other long term (current) drug therapy
CPT/HCPCS: 36000; 36415; 71045; 80053; 83735; 84484; 85025; 93005; 96360; 99284; 99291

== ENCOUNTER 2024-09-17 21:07 | Emergency (ER) | payer MEDICARE ==
[2024-09-17 21:33] VITALS: TEMP 98.2
--- NOTE | 2024-09-17 21:40 | ERPHSYRPT ---
- History of Present Illness Time Seen by Provider: 09/17/24 21:40 Historian: patient Exam Limitations: no limitations Patient Subjective Stated Complaint: pt states she began having abd pain shortly after eating today. states her stomach feels distended and crampy Triage Nursing Assessment: pt alert and oriented, answers questions approp. pt ambuates into room with unsteady gait noted. respirations nonlabored. skin warm and dry. abd distended with hyper bowel sounds Physician History: The patient presents with abdominal pain and nausea after a meal. Abdominal pain and nausea began approximately 45 minutes after consuming a meal that included salmon, Icelandic onion soup, and blue cheese salad dressing. The pain is described as labor-like, coming and going, and is not associated with gas. There is no vomiting, but belching provides temporary relief. She has been on Ozempic for prediabetes, having taken five doses. Since starting the medication, she has experienced changes in bowel habits, including constipat ion despite daily Metamucil use. The last normal bowel movement was about a month ago. No burning sensation during urination. Her past medical history includes gallbladder removal and a recent pacemaker placement two months ago, which was uneventful. She has a history of allergies to many antibiotics. Timing/Duration: today, sudden Activities at Onset: rest Quality: sharpness, stabbing Abdominal Pain Onset Location: generalized abdomen Pain Radiation: no radiation Severity of Pain-Max: moderate Severity of Pain-Current: moderate Modifying Factors: Worsens With: palpation Associated Symptoms: loss of appetite, nausea, No back, No chest pain, No diarrhea, No fever/chills, No vomiting Previous symptoms: no prior history Allergies/Adverse Reactions: levofloxacin [From Levaquin] Allergy (Severe, Verified 09/17/24 21:35) Rash Penicillins Allergy (Severe, Verified 09/17/24 21:35) Rash clindamycin Allergy (Intermediate, Verified 09/17/24 21:35) Rash nitrofurazone Allergy (Intermediate, Verified 09/17/24 21:35) Hives atorvastatin [From Lipitor] Adverse Reaction (Intermediate, Verified 09/17/24 21:35) Muscle Aches pravastatin Adverse Reaction (Intermediate, Verified 09/17/24 21:35) Muscle Aches rosuvastatin [From Crestor] Adverse Reaction (Intermediate, Verified 09/17/24 21:35) Muscle Aches Home Medications: Aspirin [Aspir-Low] 81 mg PO DAILY 09/12/16 [History] Calcium Carbonate/Vitamin D3 [Caltrate 600 + D Soft Chew Tab] 1 each PO DAILY 09/12/16 [History] Levothyroxine Sodium 88 Mcg [Synthroid 88 Mcg] 88 mcg PO DAILY 09/12/16 [History] Multivitamin,Ther and Minerals [Vitamin and Minerals] 1 tab PO DAILY 09/12/16 [History] ALPRAZolam 1 MG [Xanax 1 mg] 1 mg PO HS PRN PRN 05/15/21 [History] Beta-Carotene(A) W-C & E/Min [Ocuvite Tablet] 1 tab PO DAILY 05/15/21 [History] Cranberry 500 mg PO DAILY 05/15/21 [History] Omeprazole 40 mg PO DAILY 12/24/21 [History] Ezetimibe 10 mg PO DAILY 07/11/24 [History] Metoprolol Succinate 25 mg Xl* [Toprol-Xl 25MG Tablets] 25 mg PO DAILY 07/11/24 [History] Ropinirole HCl 0.5 mg [Requip 0.5 MG] 0.5 mg PO BID 07/11/24 [History] Rosuvastatin Calcium 5 mg PO DAILY 07/11/24 [History] Hx Tetanus, Diphtheria Vaccination/Date Given: Yes Hx Influenza Vaccination/Date Given: Yes Hx Pneumococcal Vaccination/Date Given: Yes Immunizations Up to Date: Yes Travel Risk - International Travel Have you traveled outside of the country in past 3 weeks: No - Emerging Infectious Disease Are you exhibiting symptoms associated with any current EIDs: No - Review of Systems All Other Systems: Reviewed and Negative - Past Medical History Pertinent Past Medical History: Yes Neurological History: No Pertinent History, Peripheral Neuropathy ENT History: No Pertinent History Cardiac History: High Cholesterol Respiratory History: No Pertinent History Endocrine Medical History: No Pertinent History Musculoskeletal History: Arthritis GI Medical History: Polyps, Gallbladder Disease History: Other Psycho-Social History: No Pertinent History Female Reproductive Disorders: No Pertinent History Other Medical History: R TKA - Past Surgical History Past Surgical History: Yes Neuro Surgical History: No Pertinent History Cardiac: Cardiac Catheterization, Pacemaker Respiratory: No Pertinent History Gastrointestinal: Cholecystectomy Genitourinary: No Pertinent History Musculoskeletal: Orthopedic Surgery Female Surgical History: No Pertinent History Other Surgical History: bladder tie up. left great toe. lasix eye surgery. bilat knee replacement - Social History Smoking Status: Never smoker Exposure to second hand smoke: No Drug Use: none Patient Lives Alone: No - Social Determinants of Health Will the patient participate in the screening: Yes Do you worry about a steady place to live?: No Do you have any problems with any of the following?: No known problems In the past 12 months,have you had to go without utilities?: No Transportation Issues: No Has anyone in your support network made you feel unsafe?: No Have you or anyone in your house had to go without enough: No - Nursing Vital Signs Nursing Vital Signs: Initial Vital Signs Temperature 98.2 F 09/17/24 21:26 Pulse Rate 88 09/17/24 21:26 Respiratory Rate 18 09/17/24 21:26 Blood Pressure 168/81 09/17/24 21:26 O2 Sat by Pulse Oximetry 97 09/17/24 21:26 Pain Scale Pain Intensity 6 - Physical Exam General Appearance: no apparent distress Eye Exam: eyes nml inspection Ears, Nose, Throat Exam: normal ENT inspection Neck Exam: normal inspection, supple, full range of motion Respiratory Exam: normal breath sounds, lungs clear, airway intact, No respiratory distress Cardiovascular Exam: regular rate/rhythm, normal heart sounds, capillary refill <2 sec, No edema Gastrointestinal/Abdomen Exam: soft, normal bowel sounds, tenderness (diffuse), distention, No mass, No guarding, No rebound Neurologic Exam: alert, oriented x 3, cooperative Skin Exam: normal color, warm, dry SpO2 Interpretation: normal SpO2: 97 O2 Delivery: Room Air - Course Nursing assessment & vital signs reviewed: Yes - CT Exams Abdomen/Pelvis CT Interpretation: Tele-radiologist Report, Other (splenic calcifications, uncomplicated sigmoid diverticulosis, no change from previous exam) Ordered Tests: Active Orders 24 hr Category Date Time Status EKG-ER Only STAT Care 09/17/24 21:49 Completed ABDOMEN AND PELVIS W/0 CONTRAS [CT] Stat Exams 09/17/24 21:51 Completed CBC W DIFF Stat Lab 09/17/24 22:14 Completed CMP Stat Lab 09/17/24 22:14 Completed LIPASE Stat Lab 09/17/24 22:14 Completed TROPONIN Q4H Lab 09/17/24 22:14 Completed Medication Summary Discontinued Medications Generic Name Dose Route Start Last Admin Trade Name Apoorva PRN Reason Stop Dose Admin Al Hydrox/Mg Hydrox/Simethicone Confirm 09/17/24 22:12 Mag Hydrox/Al Hydrox/Simeth 30 Ml Udcup Administered 09/17/24 22:13 Dose 30 ml .ROUTE .STK-MED ONE Lidocaine HCl Confirm 09/17/24 22:12 Lidocaine Hcl 2% Viscous 15 Ml Udcup Administered 09/17/24 22:13 Dose 15 ml .ROUTE .STK-MED ONE Magnesium Hydroxide 45 ml 09/17/24 21:49 09/17/24 22:24 Mag Hydrx/Alum Hyd/Simeth/Lido 45 Ml Bottle PO 09/17/24 21:50 45 ml STAT ONE Administration Ondansetron HCl 4 mg 09/17/24 21:49 09/17/24 22:27 Zofran 4 Mg/Udtablet Orally Disintegrating PO 09/17/24 21:50 4 mg STAT ONE Administration Ondansetron HCl Confirm 09/17/24 22:12 Zofran 4 Mg/Udtablet Orally Disintegrating Administered 09/17/24 22:13 Dose 4 mg .ROUTE .STK-MED ONE Pantoprazole Sodium 40 mg 09/17/24 21:49 09/17/24 22:23 Protonix (Pantoprazole) 40 Mg Tablet PO 09/17/24 21:50 40 mg STAT ONE Administration Pantoprazole Sodium Confirm 09/17/24 22:12 Protonix (Pantoprazole) 40 Mg Tablet Administered 09/17/24 22:13 Dose 40 mg .ROUTE .STK-MED ONE Lab/Rad Data: Laboratory Result Diagrams 09/17/24 22:14 09/17/24 22:14 Laboratory Results 09/17/24 09/17/24 09/17/24 Range/Units 22:14 22:14 22:14 WBC 11.4 H (3.98-10.04) x10^3/uL RBC 4.56 (3.93-5.22) x10^6/uL Hgb 11.4 (11.2-15.7) g/dL Hct 37.5 (34.1-44.9) % MCV 82.2 (79.4-94.8) fL MCH 25.0 L (25.6-32.2) pg MCHC 30.4 L (32.2-35.5) g/dL RDW 14.2 (11.7-14.4) % Plt Count 307 (182-369) x10^3/uL MPV 9.1 L (9.4-12.3) fL Gran % 75.8 H (34.0-71.1) % Immature Gran % (Auto) 0.5 H (0.001-0.429) % Nucleat RBC Rel Count 0.0 (0.00-0.2) % Eos # (Auto) 0.27 (0.04-0.36) x10^3/uL Immature Gran # (Auto) 0.06 H (0.001-0.031) x10^3u/L Absolute Lymphs (auto) 1.47 (1.18-3.74) x10^3/uL Absolute Monos (auto) 0.88 H (0.24-0.86) x10^3/uL Absolute Nucleated RBC 0.00 (0.00-0.012) x10^3u/L Lymphocytes % 12.9 L (19.3-51.7) % Monocytes % 7.7 (4.7-12.5) % Eosinophils % 2.4 (0.7-5.8) % Basophils % 0.7 (0.1-1.2) % Absolute Granulocytes 8.61 H (1.56-6.13) x10^3/uL Basophils # 0.08 (0.01-0.08) x10^3/uL Sodium 139 (135-145) mmol/L Potassium 4.1 (3.5-5.1) mmol/L Chloride 105 (98-107) mmol/L Carbon Dioxide 21 L (22-30) mmol/L Anion Gap 16.0 H (5-15) MEQ/L BUN 14 (7-17) mg/dL Creatinine 0.88 (0.52-1.04) mg/dL Estimated GFR 66.4 ML/MIN Glucose 124 H (74-106) mg/dL Calcium 9.1 (8.4-10.2) mg/dL Total Bilirubin 0.30 (0.2-1.3) mg/dL AST 35 (14-36) U/L ALT 31 (0-35) U/L Alkaline Phosphatase 81 (38-126) U/L Troponin I < 0.012 (0.000-0.033) ng/mL Serum Total Protein 7.7 (6.3-8.2) g/dL Albumin 4.3 (3.5-5.0) g/dL Lipase 265 (23-300) U/L - Progress Progress: improved Progress Note: Abdominal Pain Acute onset of diffuse abdominal pain postprandial, described as labor-like and intermittent, associated with nausea but no vomiting. Recent Ozempic use, known for gastrointestinal side effects including pancreatitis and bloating. Differential diagnosis includes gastrointestinal upset, pancreatitis, or other gastrointestinal pathology. Food poisoning considered less likely. Plan includes lab work and CT scan to rule out serious conditions. - Order lab work - Order CT scan of the abdomen - Prescribe Zofran for nausea - Prescribe Protonix for stomach acid - GI cocktail given. - Consider stopping Ozempic Labs unremarkable, CT scan negative for acute pathology. Sxs improved with GI cocktail and Protonix. Counseled pt/family regarding: lab results, diagnosis, need for follow-up, rad results Medical Desision Making - Diagnostic Testing Diagnostic test were ordered, analyzed, and reviewed by me: Yes Radiological Interpretation: Interpreted by me, Reviewed by me, Teleradiologist Report - Risk of complications The pt has a mod risk of morbidity or mortality based on: Need for prescription drug management - Departure Departure Disposition: Home Clinical Impression: Dyspepsia, Medication side effect, Sigmoid diverticulosis, Gastritis Condition: Good Critical Care Time: No Referrals: MYNOR BLOUNT NP [Primary Care Provider] - Follow up/PCP as directed Instructions: Dyspepsia (DC)
[2024-09-17] MEDS ORDERED: ZOFRAN ODT 4 MG ONE (22:12)
[2024-09-17] MEDS ORDERED: Protonix 40MG Tablet ONE (22:12)
[2024-09-17] MEDS ORDERED: MAALOX ES 30 ML UNIT DOSE ONE (22:12)
[2024-09-17] MEDS ORDERED: XYLOCAINE VISCOUS 2% 15 ML CUP ONE (22:12)
[2024-09-17 22:16] LABS: Absolute Neutrophil Ct (ANC) 8.61 x10^3/uL (1.56-6.13); BASOPHIL % 0.7 % (0.1-1.2); Basophil (Absolute #) 0.08 x10^3/uL (0.01-0.08); Eosinophil % 2.4 % (0.7-5.8); Eosinophil (Absolute #) 0.27 x10^3/uL (0.04-0.36); Hematocrit 37.5 % (34.1-44.9); Hemoglobin 11.4 g/dL (11.2-15.7); IMMATURE GRAN # 0.06 x10^3u/L (0.001-0.031); IMMATURE GRAN % 0.5 % (0.001-0.429); Lymphocyte (Absolute #) 1.47 x10^3/uL (1.18-3.74); Lymphocytes % 12.9 % (19.3-51.7); Mean Cell Volume 82.2 fL (79.4-94.8); Mean Corpuscular Hgb Concent. 30.4 g/dL (32.2-35.5); Mean Platelet Volume 9.1 fL (9.4-12.3); Monocyte (Absolute #) 0.88 x10^3/uL (0.24-0.86); Monocytes % 7.7 % (4.7-12.5); Neutrophil % 75.8 % (34.0-71.1); Platelet Count 307 x10^3/uL (182-369); Red Blood Count 4.56 x10^6/uL (3.93-5.22); Red Cell Distribution Width 14.2 % (11.7-14.4); White Blood Count 11.4 x10^3/uL (3.98-10.04)
[2024-09-17] MEDS: Protonix 40MG Tablet PO ONE (22:23)
[2024-09-17] MEDS: GI COCKTAIL 45 ML (Maalox/Lidocaine) PO ONE (22:24)
[2024-09-17] MEDS: ZOFRAN ODT 4 MG PO ONE (22:27)
[2024-09-17 22:29] LABS: ALBUMIN 4.3 g/dL (3.5-5.0); BILIRUBIN,TOTAL 0.3 mg/dL (0.2-1.3); Calcium 9.1 mg/dL (8.4-10.2); Creatinine 1 0.88 mg/dL (0.52-1.04); EST GLOMERULAR FILTRATION RATE 66.4 ML/MIN; Potassium 4.1 mmol/L (3.5-5.1); Total Protein 7.7 g/dL (6.3-8.2)
--- NOTE | 2024-09-17 23:14 | XRAY ---
CLINICAL HISTORY: abd pain COMPARISON: CT abdomen and Pelvis scan done on 13 February 2021 TECHNIQUE: Contiguous axial images were obtained from the level of the diaphragm to the pubic symphysis without intravenous or oral contrast. Coronal and sagittal reconstructions were likewise performed and indicated to increase the sensitivity for detecting clinically relevant pathology. CT scan was performed according to ALARA (as low as reasonable achievable). FINDINGS: The visualized lung bases are clear. Evaluation of the abdominal and pelvic visceral organs is limited without intravenous contrast. The unenhanced liver, pancreas, and adrenal glands are grossly unremarkable. Tiny calcification are seen in the spleen, measuring less than 0.5 cm The gallbladder is not visualized. The kidneys are normal in size and attenuation without obvious calcification. There is no hydronephrosis or perinephric stranding. The ureters are normal in caliber. No adenopathy or fluid collections are seen. Small sized diverticula are seen in the sigmoid colon. No evidence of focal or diffuse bowel wall thickening or evidence of bowel obstruction is seen. The aorta shows atherosclerotic calcification. The urinary bladder is normal in contour. Pelvic viscera are grossly unremarkable. No aggressive appearing osseous lesions are identified. Degenerative chanegs in the visualized spine IMPRESSION: 1. No acute abnormality seen in the abdomen and pelvis 2. Splenic calcifications - likely granulomas. 3. Uncomplicated sigmoid diverticulosis 4. No changes in the findings since previous CT scan done in February 2021 Electronically Signed by: Juvenal Devlin MD. (09/17/2024 23:10:19 EST)
[2024-09-18 00:06] VITALS: BP 130/77; PULSE 84; RESP 16
[2024-09-18 01:24] VITALS: O2SAT 97
== END 2024-09-17 23:51 | disposition home or self-care (01) ==
LOC: ED 21:07
DX: R10.13 Epigastric pain (principal); R11.0 Nausea; T38.3X5A Adverse effect of insulin and oral hypoglycemic [antidiabetic] drugs, initial encounter; Z79.899 Other long term (current) drug therapy; K57.30 Diverticulosis of large intestine without perforation or abscess without bleeding; K29.70 Gastritis, unspecified, without bleeding
CPT/HCPCS: 36415; 74176; 80053; 83690; 84484; 85025; 93005; 99284; 99285; Q0162; A9270-GY